=== PATIENT | female | born 1980 | race African-American/Black ===

== ENCOUNTER 2022-09-09 18:11 | Emergency (ER) | payer OTHER ==
[2022-09-09 18:47] VITALS: TEMP 97.2
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
[2022-09-09 20:56] LABS: Appearance,Urine Cloudy (Clear); Bacteria,Urine Occasional /hpf; Bilirubin,Urine Negative (Negative); Blood,Urine Negative (Negative); Color,Urine Yellow; Glucose,Urine (UA) Negative (Negative); Hyaline Casts,Urine 36 /lpf (0-2); Ketones,Urine Trace (Negative); Leukocyte Esterase,Urine Trace (Negative); Mucus,Urine Many /hpf; Nitrite,Urine Negative (Negative); Protein,Urine 2+ (Negative); RBC,Urine 2 /hpf (0-5); Specific Gravity,Urine 1.035 (1.001-1.035); Squamous Epithelial Cell,Urine 6 /hpf (0-4); WBC,Urine 4 /hpf (0-5)
[2022-09-09 21:05] VITALS: BP 118/76; PULSE 90; RESP 18
[2022-09-09 21:08] LABS: Amphetamine Screen,Urine Detected (NotDetected); Barbiturate Screen,Urine Not Detected (NotDetected); Benzodiazepines Screen,Urine Not Detected (NotDetected); Cocaine Screen,Urine Not Detected (NotDetected); Methadone Screen, Urine Not Detected (NotDetected); Opiate Screen,Urine Not Detected (NotDetected); Oxycodone Screen, Urine Not Detected (NotDetected); Phencyclidine Screen,Urine Not Detected (NotDetected); Tricyclic Antidepressant,Urine Not Detected (NotDetected); Urn Cannabinoid Scrn Detected (NotDetected)
[2022-09-10] MEDS ORDERED: cefTRIAXone 250 MG VIAL IM STA (01:24)
[2022-09-10] MEDS ORDERED: AZITHROMYCIN 500 MG TAB PO STA (01:24)
== END 2022-09-10 02:46 | disposition home or self-care (01) ==
LOC: EC 18:11
DX: T74.21XA Adult sexual abuse, confirmed, initial encounter (principal); Z88.6 Allergy status to analgesic agent
CPT/HCPCS: 82075; 81001; 81025; 87491; 87591; 80306; 87070; 99284; 96372; J0696